=== PATIENT | female | born 1980 | race Caucasian/White ===

== ENCOUNTER 2016-09-13 19:12 | Emergency (ER) | payer BC ==
[2016-09-13 19:34] VITALS: BP 132/76; PULSE 82; RESP 16; TEMP 98.8; O2SAT 96
== END 2016-09-13 19:25 | disposition left against medical advice (07) ==
LOC: CED 19:12
DX: K08.89 Other specified disorders of teeth and supporting structures (principal); R22.0 Localized swelling, mass and lump, head; Z53.8 Procedure and treatment not carried out for other reasons